=== PATIENT | male | born 1995 | race Two or more races ===

== ENCOUNTER 2024-05-25 08:55 | Emergency (ER) | payer SELFPAY ==
[2024-05-25 09:20] LABS: BASOPHILS ABSOLUTE AUTO 0.06 K/uL (0.00-0.20); BASOPHILS PERCENT AUTO 0.7 % (0.0-1.0); EOSINOPHILS ABSOLUTE AUTO 0.14 K/uL (0.00-0.45); EOSINOPHILS PERCENT AUTO 1.7 % (0.0-6.0); HEMATOCRIT 45.6 % (42.0-52.0); HEMOGLOBIN 15.1 g/dL (14.0-18.0); IMMATURE GRAN ABSOLUTE AUTO 0.02 K/uL (0.00-0.05); IMMATURE GRAN PERCENT AUTO 0.2 % (0.0-0.4); LYMPHOCYTES ABSOLUTE AUTO 1.65 K/uL (1.00-4.80); LYMPHOCYTES PERCENT AUTO 20.2 % (24.0-44.0); MEAN CORPUSCULAR HEMOGLOBIN 29.2 pg (28.0-32.0); MEAN CORPUSCULAR HGB CONC 33.1 g/dL (32.0-36.0); MEAN CORPUSCULAR VOLUME 88.2 fL (83.0-99.0); MEAN PLATELET VOLUME 9.2 fL (9.4-12.4); MONOCYTES ABSOLUTE AUTO 0.74 K/uL (0.00-0.80); MONOCYTES PERCENT AUTO 9.1 % (0.0-8.0); NEUTROPHILS ABSOLUTE AUTO 5.55 K/uL (1.80-7.70); NEUTROPHILS PERCENT AUTO 68.1 % (41.0-71.0); PLATELET COUNT,PLT 277 K/uL (150-400); RED BLOOD CELL COUNT 5.17 M/uL (4.52-5.90); WHITE BLOOD CELL COUNT,WBC 8.16 K/uL (3.9-11.3)
[2024-05-25 09:53] LABS: A/G RATIO 1.2 (0.9-1.6); ALANINE AMINOTRANSFERASE,ALT 30 IU/L (14-63); ALKALINE PHOSPHATASE 80 U/L (46-116); ASPARTATE AMNIOTRANSFERASE,AST 21 IU/L (15-37); BILIRUBIN TOTAL 1.4 mg/dL (0.2-1.0); BLOOD UREA NITROGEN,BUN 14 mg/dL (7.0-18.0); CALCIUM 9.4 mg/dL (8.5-10.1); CARBON DIOXIDE,CO2 24.8 mmol/L (21.0-32.0); CHLORIDE,CL 103 mmol/L (98-107); EST CRCL DRUG DOSING (CG) 124.44 mL/min; GLUCOSE RANDOM 91 mg/dL (74-106); POTASSIUM,K 4.1 mmol/L (3.5-5.1); PROTEIN TOTAL,TP 7.3 g/dL (6.4-8.2); SODIUM,NA 138 mmol/L (136-148)
[2024-05-25 09:58] LABS: ESTIMATED GFR 103 mL/min (>60)
[2024-05-25] MEDS: Sucralfate Suspension 1 GM/10 ML Cup PO ONE (10:36)
[2024-05-25 10:42] LABS: TSH ULTRASENSITIVE 1.68 uIU/mL (0.36-3.74)
== END 2024-05-25 12:58 | disposition home or self-care (01) ==
LOC: MERGE 08:55 → MW.ED 08:55
DX: R00.2 Palpitations (principal); F17.210 Nicotine dependence, cigarettes, uncomplicated
CPT/HCPCS: 36415; 71046; 80053; 84443; 84484; 85025; 87428; 93005; 99285; A9270

== ENCOUNTER 2025-01-26 09:31 | Emergency (ER) | payer SELFPAY ==
[2025-01-26] MEDS: Ketorolac 30 MG/ML SDV IM ONE (10:11)
[2025-01-26] MEDS: Orphenadrine 60 MG/2 ML Inj IM ONE (10:12)
== END 2025-01-26 12:18 | disposition home or self-care (01) ==
LOC: MW.ED 09:31
DX: S29.012A Strain of muscle and tendon of back wall of thorax, initial encounter (principal); Z79.899 Other long term (current) drug therapy; X50.0XXA Overexertion from strenuous movement or load, initial encounter; Y93.89 Activity, other specified; Y99.0 Civilian activity done for income or pay
CPT/HCPCS: 72128; 96372; 99283; A9270; J1885; J2360; J8540